=== PATIENT | male | born 1995 | race Caucasian/White ===

== ENCOUNTER 2017-06-10 05:11 | Emergency (ER) | payer OTHER ==
[2017-06-10] MEDS ORDERED: TORADOL IM ONE (05:41)
[2017-06-10 06:00] LABS: Basophils % (Auto) 0.4 % (0.0-1.8); Eosinophils # (Auto) 0.1 K/mm3 (0.0-0.4); Hematocrit 50.9 % (35.5-45.6); Hemoglobin 17.4 gm/dl (11.8-15.2); Lymphocytes # (Auto) 2.6 K/mm3 (1.2-5.4); Lymphocytes % (Auto) 20.4 % (13.4-35.0); Mean Corpuscular HGB Conc 34 % (32-34); Mean Corpuscular Hemoglobin 31 pg (28-32); Mean Corpuscular Volume 91 fl (84-94); Monocytes # (Auto) 0.8 K/mm3 (0.0-0.8); Monocytes % (Auto) 6.1 % (0.0-7.3); Platelet Count 211 K/mm3 (140-440); Red Blood Count 5.58 M/mm3 (3.65-5.03); Red Cell Distribution Width 13.4 % (13.2-15.2)
[2017-06-10 06:40] LABS: Alanine Aminotransferase 35 units/L (7-56); Albumin 4.4 g/dL (3.9-5); BUN/Creatinine Ratio 13; Blood Urea Nitrogen 8 mg/dL (9-20); Calcium 8.5 mg/dL (8.4-10.2); Hemolysis Index 38; Lipase 31 units/L (13-60)
[2017-06-10] MEDS ORDERED: NORCO 5/325 PO ONE (06:54)
--- NOTE | 2017-06-10 06:57 | Emergency Department Report ---
HPI - General Chief Complaint: Abdominal Pain Time Seen by Provider: 06/10/17 06:33 - HPI HPI: This is a 21-year-old male who presents to the emergency department with complaint of some upper abdominal pain, nausea and vomiting that started about 3 AM this morning and woke him from sleep. He took some Tylenol for his symptoms without much relief. He denies any fever, diarrhea, dysuria or discharge. The abdominal pain does radiate towards the middle back. No numbness or paresthesias or any neurological deficits. He denies any past medical history. He does not have a primary care physician. No recent travel or sick contacts at home. The pain is 5 out of 10 in intensity. There are no aggravating or alleviating factors. ED Past Medical Hx - Past Medical History Previous Medical History?: No Additional medical history: Obesity - Surgical History Past Surgical History?: No - Social History Smoking Status: Current Every Day Smoker Substance Use Type: None - Medications Home Medications: Home Medications Medication Instructions Recorded Confirmed Last Taken Type HYDROcodone/ACETAMINOPHEN [Carson 1 each PO Q6H PRN #10 tablet 06/10/17 Unknown Rx 5-325 Tablet] Ondansetron [Zofran Odt] 4 mg PO Q8H PRN #10 tab.rapdis 06/10/17 Unknown Rx ED Review of Systems ROS: Stated complaint: BACK AND ABD PAIN Other details as noted in HPI Comment: All other systems reviewed and negative Constitutional: denies: chills, fever Eyes: denies: eye pain, eye discharge, vision change ENT: denies: ear pain, throat pain Respiratory: denies: cough, shortness of breath, wheezing Cardiovascular: denies: chest pain, palpitations Gastrointestinal: abdominal pain, nausea, vomiting Genitourinary: denies: urgency, dysuria Musculoskeletal: back pain. denies: arthralgia Skin: denies: rash, lesions Neurological: denies: headache, weakness, paresthesias Physical Exam - Physical Exam Vital Signs: Vital Signs 06/10/17 06/10/17 05:35 06:21 Temperature 98.2 F 98.1 F Pulse Rate 60 51 L Respiratory 16 17 Rate Blood Pressure 147/86 Blood Pressure 144/90 [Left] O2 Sat by Pulse 100 100 Oximetry Physical Exam: GENERAL: The patient is well-developed well-nourished. HENT: Normocephalic. Atraumatic. Patient has moist mucous membranes. EYES: Extraocular motions are intact. Pupils equal reactive to light bilaterally. NECK: Supple. Trachea is midline. CHEST/LUNGS: Clear to auscultation. There is no respiratory distress noted. HEART/CARDIOVASCULAR: Regular. There is no tachycardia. There is no murmur. ABDOMEN: Abdomen is soft. There is epigastric and right upper quadrant tenderness to palpation. No guarding or rebound tenderness. Patient has normal bowel sounds. Obese habitus. SKIN: Skin is warm and dry. NEURO: The patient is awake, alert, and oriented. The patient is cooperative. The patient has no focal neurologic deficits. The patient has normal speech. MUSCULOSKELETAL: There is no tenderness or deformity. There is no limitation range of motion. There is no evidence of acute injury. ED Course Vital Signs 06/10/17 06/10/17 05:35 06:21 Temperature 98.2 F 98.1 F Pulse Rate 60 51 L Respiratory 16 17 Rate Blood Pressure 147/86 Blood Pressure 144/90 [Left] O2 Sat by Pulse 100 100 Oximetry ED Medical Decision Making - Lab Data Result diagrams: 06/10/17 05:45 06/10/17 05:45 - Radiology Data Radiology results: report reviewed, image reviewed interpreted by me: Abdominal x-ray shows nonspecific nonobstructive bowel gas. XAM: US ABDOMEN COMPLETE HISTORY: Abd pain TECHNIQUE: Routine sonographic evaluation was obtained of the upper abdomen. FINDINGS: The gallbladder is normal in size and wall thickness. There are multiple dependent stones in the gallbladder the largest measuring 1.9 cm in diameter. There are no secondary signs of acute cholecystitis. The common bile duct measures 5 millimeters in diameter which is normal. The liver is normal in size and echotexture. The pancreas is not well seen because of patient habitus and bowel gas. Both kidneys are appropriate size contour and echotexture. The right kidney measures 16 cm x 4.7 cm x 5.8 cm. The left kidney measures 11.8 cm x 5.2 cm x 4.5 cm. There is no evidence of hydronephrosis. The spleen is normal in size and echotexture and measures 12 cm in length. Free fluid is not seen. There is a very small amount of pleural fluid on the right side. IMPRESSION: Gallstones. No secondary signs of acute cholecystitis. Very small right-sided pleural effusion. Transcribed By: RB Dictated By: TASHIA SAMUEL MD Electronically Authenticated By: TASHIA SAMUEL MD Signed Date/Time: 06/10/17 2640 - Medical Decision Making Patient presents with some upper abdominal pain, nausea or vomiting. Labs are unremarkable. However ultrasound shows cholelithiasis without cholecystitis. Vital signs stable including being afebrile. He was given some nausea medication and pain medication and upon reevaluation he is feeling improved. I discussed with him the need to follow up with a general surgeon to establish care and if he continues to have issues secondary to cholelithiasis that he may need outpatient cholecystectomy. Otherwise he will return to the ER with any worsening of symptoms or any acute distress. We discussed staying away from foods that are greasy, fatty and spicy. - Differential Diagnosis cholelithiasis, cholecystitis, pancreatitis, gastritis Critical Care Time: No Critical care attestation.: If time is entered above; I have spent that time in minutes in the direct care of this critically ill patient, excluding procedure time. ED Disposition Clinical Impression: Biliary colic Abdominal pain Qualifiers: Abdominal location: upper abdomen, unspecified Qualified Code(s): R10.10 - Upper abdominal pain, unspecified Cholelithiasis Qualifiers: Cholelithiasis location: gallbladder Cholecystitis presence: without cholecystitis Biliary obstruction: without biliary obstruction Qualified Code(s) : K80.20 - Calculus of gallbladder without cholecystitis without obstruction Disposition: DC-01 TO HOME OR SELFCARE Is pt being admited?: No Condition: Stable Instructions: Biliary Colic (ED) Additional Instructions: Please follow up with your primary care physician in the next few days if possible. I have given a referral for a local general surgeon, Dr. Azar, to establish care and discuss your gallstones. If you continue to have pain from your gallstones or further gallbladder attacks, you may need to have the gallbladder removed electively outpatient. However if you're pain worsens, you have intractable vomiting, or if there is any acute distress, return to the emergency Department immediately. Try and stay away from foods that are fatty, spicy, greasy so that you do not exacerbate the abdominal pain and gallbladder. You have been prescribed a medication that is sedating and therefore should not be taken prior to driving, working, and responsible for children and in no way should be mixed with alcohol of any quantity. Prescriptions: HYDROcodone/ACETAMINOPHEN [Carson 5-325 Tablet] 1 each PO Q6H PRN #10 tablet PRN Reason: Pain Ondansetron [Zofran Odt] 4 mg PO Q8H PRN #10 tab.rapdis PRN Reason: Nausea Referrals: PRIMARY CARE,MD [Primary Care Provider] - 3-5 Days RASHMI AZAR DO [Staff Physician] - 3-5 Days Time of Disposition: 08:45
--- NOTE | 2017-06-10 07:53 | Ultrasound Report ---
FINAL REPORT EXAM: US ABDOMEN COMPLETE HISTORY: Abd pain TECHNIQUE: Routine sonographic evaluation was obtained of the upper abdomen. FINDINGS: The gallbladder is normal in size and wall thickness. There are multiple dependent stones in the gallbladder the largest measuring 1.9 cm in diameter. There are no secondary signs of acute cholecystitis. The common bile duct measures 5 millimeters in diameter which is normal. The liver is normal in size and echotexture. The pancreas is not well seen because of patient habitus and bowel gas. Both kidneys are appropriate size contour and echotexture. The right kidney measures 16 cm x 4.7 cm x 5.8 cm. The left kidney measures 11.8 cm x 5.2 cm x 4.5 cm. There is no evidence of hydronephrosis. The spleen is normal in size and echotexture and measures 12 cm in length. Free fluid is not seen. There is a very small amount of pleural fluid on the right side. IMPRESSION: Gallstones. No secondary signs of acute cholecystitis. Very small right-sided pleural effusion.
--- NOTE | 2017-06-10 08:14 | XRay Report ---
FINAL REPORT EXAM: XR ABDOMEN 2V HISTORY: Abd pain TECHNIQUE: upright and supine views of the abdomen and pelvis PRIORS: Ultrasound of the same date FINDINGS: No pneumoperitoneum. Bowel gas pattern is nonobstructive. No pathologic calcification or fracture. IMPRESSION: Nonobstructive bowel gas pattern without pathologic calcification or other acute finding. Consider CT follow-up for more sensitive and specific evaluation of abdominal pain as warranted.
[2017-06-10 09:30] VITALS: BP 126/75
== END 2017-06-10 09:31 | disposition home or self-care (01) ==
LOC: ED 05:11
DX: K80.20 Calculus of gallbladder without cholecystitis without obstruction (principal); F17.200 Nicotine dependence, unspecified, uncomplicated
CPT/HCPCS: 36415; 74019; 76700; 80053; 83690; 85025; 96372; 99284; J1885

== ENCOUNTER 2017-06-17 04:53 | Emergency (ER) | payer SELFPAY ==
[2017-06-17 07:52] VITALS: BP 148/90
[2017-06-17 08:40] LABS: Basophils % (Auto) 0.4 % (0.0-1.8); Eosinophils # (Auto) 0.2 K/mm3 (0.0-0.4); Eosinophils % (Auto) 2.1 % (0.0-4.3); Hematocrit 50.8 % (35.5-45.6); Lymphocytes # (Auto) 2.1 K/mm3 (1.2-5.4); Lymphocytes % (Auto) 17.9 % (13.4-35.0); Mean Corpuscular HGB Conc 34 % (32-34); Mean Corpuscular Hemoglobin 31 pg (28-32); Mean Corpuscular Volume 92 fl (84-94); Monocytes % (Auto) 8.5 % (0.0-7.3); Red Blood Count 5.52 M/mm3 (3.65-5.03); Red Cell Distribution Width 13.4 % (13.2-15.2)
[2017-06-17 08:56] LABS: Alanine Aminotransferase 55 units/L (7-56); Albumin 4.9 g/dL (3.9-5); BUN/Creatinine Ratio 9; Blood Urea Nitrogen 6 mg/dL (9-20); Calcium 9.3 mg/dL (8.4-10.2); Hemolysis Index 25
[2017-06-17 09:43] LABS: Bacteria,Urine 1+ /HPF (Negative); Bilirubin,Urine NEG (Negative); Blood,Urine NEG (Negative); Color,Urine Amber (Yellow); Mucus,Urine 3+ /HPF; Nitrite,Urine NEG (Negative)
[2017-06-17 09:50] LABS: Platelet Count 256 K/mm3 (140-440)
== END 2017-06-17 16:38 | disposition left against medical advice (07) ==
LOC: ED 04:53
DX: R10.9 Unspecified abdominal pain (principal); Z53.21 Procedure and treatment not carried out due to patient leaving prior to being seen by health care provider
CPT/HCPCS: 36415; 80053; 81001; 83690; 85025